=== PATIENT | male | born 1950 | race Native Hawaiian/Other Pacific Islander ===

== ENCOUNTER 2018-03-06 10:52 | Inpatient (IN) | payer MEDICAID, OTHER ==
[2018-03-06] MEDS ORDERED: VANCOMYCIN HCL/NORMAL SALINE 250 ML IV ONE (12:51)
--- NOTE | 2018-03-06 12:53 | EDPHY ---
H & P Stated Complaint: R great toe DM ulcer worse overnight Time Seen by Provider: 03/06/18 12:04 HPI/ROS: Chief Complaint: Worsening ulcer on redness right foot HPI: 67-year-old type 2 diabetic presenting for with a worsening ulcer on his right great toe. Patient states that he was seen by his director home health on Wednesday instructed to follow up with the wound clinic. He has an appointment there in 1 week's time. Family of notice worsening ulceration of his right big toe and now has redness that is spreading up to his mid foot. No fevers or chills. He had noticed some scant discharge. Patient states that he is having increased pain particularly with walking. ROS: 10 point Review of Systems is negative except as noted in the HPI. PMH: Diabetes, coronary artery disease Social History: No smoking Family History: non-contributory Physical Exam: Gen: Awake, Alert, No Distress HEENT: Nose: no rhinorrhea Eyes: PERRLA, EOMI Mouth: Moist mucosa Neck: Supple, no JVD Chest: nontender, lungs clear to auscultation Heart: S1, S2 normal, no murmur Abd: Soft, non-tender, no guarding Back: no CVA tenderness, no midline tenderness Ext: Right foot: Patient has 2 areas of ulceration on his right great toe in the lateral aspect of the distal phalanx. There is erythema spreading proximal to the MCP joint. Sensation is intact. It is warm to touch. Skin: no rash Neuro: CN II-XII intact, Sensation grossly intact, Strength 5/5 in bilateral upper and lower extremities - Personal History Current Tetanus/Diphtheria Vaccine: Yes - Medical/Surgical History Hx Asthma: No Hx Chronic Respiratory Disease: No Hx Diabetes: Yes Hx Cardiac Disease: Yes Hx Renal Disease: No Hx Cirrhosis: No Hx Alcoholism: No Hx HIV/AIDS: No Hx Splenectomy or Spleen Trauma: No Other PMH: KS X3, STENTS X 5 HTN, NIDDM - Social History Smoking Status: Former smoker Constitutional: Initial Vital Signs Temperature (C) 36.5 C 03/06/18 11:09 Heart Rate 64 03/06/18 11:09 Respiratory Rate 16 03/06/18 11:09 Blood Pressure 175/75 H 03/06/18 11:09 O2 Sat (%) 95 03/06/18 11:09 O2 Delivery Mode Room Air Allergies/Adverse Reactions: No Known Allergies Allergy (Verified 03/06/18 11:13) Home Medications: Medication Instructions Recorded Aspirin [Aspirin 325 mg (*)] 325 mg PO HS 03/27/16 Clopidogrel Bisulfate [Plavix (*)] 75 mg PO DAILY 03/27/16 Insulin Glargine [Lantus 100 30 units SC HS 03/27/16 UNITS/ML (*)] Insulin Lispro [humALOG LISPRO 100 10 - 15 unit SC BIDMEAL 03/27/16 units/ml (*)] Lisinopril [Zestril 20 mg (*)] 20 mg PO DAILY 03/27/16 Metoprolol Tartrate [Lopressor 50 50 mg PO BID 03/27/16 mg (*)] Simvastatin 40 mg PO HS 03/27/16 Metformin HCl 03/06/18 Medical Decision Making ED Course/Re-evaluation: 67-year-old male with cellulitis secondary to a diabetic foot ulcer. I have ordered blood tests and cultures. Vancomycin given his diabetes. He will need admission. I have ordered an x-ray which is pending. I have discussed with Dr. Zaragoza, hospitalist. Will admit to Dr. Powers for further care. Departure - Departure Disposition: [facility] In[facility] Acute Clinical Impression: Cellulitis Condition: Good Referrals: NONE *PRIMARY CARE P,. [Primary Care Provider] - As per Instructions
[2018-03-06 13:04] LABS: PLATELET COUNT 350 10^3/uL (150-400)
[2018-03-06] MEDS ORDERED: ONDANSETRON DISINTEGRATING 4 MG TAB PO PRN (15:12)
[2018-03-06] MEDS ORDERED: ONDANSETRON 4 MG/2 ML VIAL IVP PRN (15:12)
[2018-03-06] MEDS ORDERED: ACETAMINOPHEN 325 MG TAB PO PRN (15:12)
--- NOTE | 2018-03-06 15:34 | ASMTCMCOM ---
CM Note CM Note Notes: Pt presented to the Emergency Department with a worsening ulcer/wound on his right toe/foot. History includes diabetes, coronary artery disease. Pt admitted for cellulitis. Pt is and lives with his spouse. Discharge needs remain unclear at this time. CM will continue to follow. Current Discharge Plan: To be determined Date Signed: 03/06/2018 03:33 PM Electronically Signed By:Nallely Wells RN
[2018-03-06] MEDS ORDERED: IOPAMIDOL (ISOVUE 370) 100 ML BTL IV ONE ×2 (16:00→16:51)
--- NOTE | 2018-03-06 16:02 | GHP ---
[f rep st] HISTORY AND PHYSICAL DATE OF ADMISSION: 03/06/2018 HISTORY OF PRESENT ILLNESS: The patient is a pleasant 67-year-old gentleman with a history of longstanding diabetes and coronary artery disease, presents with a toe ulcer. It has been there for about a month, initially noted on [place], and he came back, and it was looking a little bit worse with some surrounding erythema. He saw the manager employee benefits, Mickey Sutherland MD, recently referred him to the wound clinic. He has an appointment there next week, but this morning developed some purpura around and increased redness, so therefore he was referred to the emergency department for further evaluation. There he had a film showing no evidence of osteomyelitis and hyperglycemia. The patient notes he may have some symptoms consistent with claudication of his left lower extremity. He does have decreased pulses in that area. He does not have any known peripheral vascular disease. He has had diabetes for a long period of time. He has had no recent anginal or heart failure type symptoms. REVIEW OF SYSTEMS: Complete 10-point review of systems conducted, negative except as noted in the HPI. PAST MEDICAL HISTORY: Coronary artery disease with remote stents. He had an angiogram in February 2016 showing LVEF of 45% on and non flow-limiting coronary artery disease, but presence of significant coronary artery disease. ALLERGIES: No known drug allergies. HOME MEDICATIONS: Aspirin, atorvastatin, Plavix, Detemir insulin 30 h.s., lispro 10-15 b.i.d., lisinopril/hydrochlorothiazide, metformin, metoprolol. SOCIAL HISTORY: Quit tobacco many, many years ago. Rare alcohol. Works in cleaning. FAMILY HISTORY: Daughter is at the bedside and healthy. PHYSICAL EXAMINATION: VITAL SIGNS: Temp 36.6, blood pressure 168/88, pulse 53 , breathing 16 times a minute, 97% on room air. GENERAL: In no acute distress. HEENT: Sclerae anicteric. Oropharynx clear. Mucous membranes moist. NECK: Supple without lymphadenopathy or JVD. LUNGS: Clear to auscultation bilaterally. HEART: S1, S2. ABDOMEN: Soft, nontender, nondistended. LOWER EXTREMITIES: Without edema. His left lower extremity has a healed ulcer with minimal surrounding cellulitis without lymphangitic streaking. There is an area of purpura on the distal end of the toe. There is no fluctuance. He has an absent dorsalis pedis pulse on that side as he does on the right. The toes are cool. There is hair loss in his lower extremities. NEURO: Nonfocal. LABORATORY/IMAGING DATA: White count 8.3, hematocrit 38. Platelets are 350. Sodium 138, potassium 4.9, chloride 98, bicarb 29, BUN 16, creatinine 0.6, glucose 304. Foot film reviewed, interpreted by me shows no evidence of osteomyelitis. I discussed the case with Dr. Rebel Ho. ASSESSMENT/PLAN: 67-year-old gentleman presents with diabetic foot ulcer. 1. Foot ulcer. This is consistent with a peripheral vascular disease and a foot ulcer. I think there is probably a degree of surrounding cellulitis and will continue vancomycin as initiated by the emergency department. I have ordered a wound care consultation. 2. Peripheral vascular disease. I have ordered ABIs and a CT of the left lower extremity with runoff. Certainly the patient appears to have some significant peripheral vascular disease. 3. Coronary artery disease. Continue on aspirin, beta maylin, statin. 4. Hypertension. Continue his lisinopril/hydrochlorothiazide. 5. Diabetes. Continue his long-acting insulin and as well as his short-acting insulin. Will follow up with the need for sliding scale tomorrow for an A1c. 6. Prophylaxis. Moderate risk, low-molecular heparin. /[id number]/MODL MTDD
--- NOTE | 2018-03-06 18:05 | PDMN ---
Medical Necessity Medical necessity: MCG MGVAS Vascular Disease and M70 Cellulitis, A-2 days. 67 y/o with worsening s/sx to L toe ulcer, redness and purpura, decreased pulse noted, dx with PVD and cellulitis this visit. Hx Diabetes and CAD w/ stent placement. IV antibiotics required, wound consult pending. Pt hypertensive. Glucose 304. Blood cultures pending. Anticipate >2MN for ongoing monitoring and intervention.
[2018-03-06] MEDS: metFORMIN HCL 500 MG TAB PO SCH (18:37)
[2018-03-06] MEDS: INSULIN LISPRO 100 UNIT/ML SC SCH (19:33)
[2018-03-06] MEDS ORDERED: INSULIN DETEMIR 30 UNIT SQ SCH (21:00)
[2018-03-06] MEDS ORDERED: INSULIN GLARGINE 100 UNITS/ML UNIT SC SCH (21:00)
[2018-03-06] MEDS: ASPIRIN 325 MG TAB PO SCH (22:00)
[2018-03-06] MEDS: ATORVASTATIN CALCIUM 20 MG TAB PO SCH (22:00)
[2018-03-06] MEDS: METOPROLOL TARTRATE 50 MG TAB PO SCH (22:01)
[2018-03-07] MEDS: INSULIN LISPRO 100 UNIT/ML SC SCH ×3 (08:41→18:38)
[2018-03-07] MEDS: metFORMIN HCL 500 MG TAB PO SCH ×2 (08:42→17:42)
[2018-03-07] MEDS: CLOPIDOGREL BISULFATE 75 MG TAB PO SCH (10:17)
[2018-03-07] MEDS: LISINOPRIL/HCTZ 20/12.5MG 1 EA TAB PO SCH (10:17)
[2018-03-07] MEDS: METOPROLOL TARTRATE 50 MG TAB PO SCH ×2 (10:17→21:06)
[2018-03-07] MEDS: ENOXAPARIN 40 MG/0.4 ML SYR SC SCH (10:18)
[2018-03-07] MEDS ORDERED: INSULIN GLARGINE 100 UNITS/ML UNIT SC SCH (12:00)
[2018-03-07] MEDS ORDERED: D50W 25 GM/50 ML SYR IVP PRN (12:01)
[2018-03-07] MEDS: VANCOMYCIN HCL/NORMAL SALINE 250 ML IV SCH ×2 (12:56)
--- NOTE | 2018-03-07 13:04 | HOSPPROG ---
Hospitalist Progress Note Assessment/Plan: 67 yo M w poorly cpntrolled dm, cad aan pvd here w diabetic foot ulcer foot ulcer: w cellulitis on vanc w improvement no e/o osteo on film additional day IV abx wound care to see as inpatient PVD: CTA w runoff w 50% stenoses, but no clear need for intervention surgery to review CT as well given poorly controlled dm, he likely has small vessel disease, but also has diminished DP pulses on aspirin DM: a1c 11.8, indicating poor control increase levemir to 36 from 30 only takes lispro 2x a day abut also states eats just 2 meals per day will increase doses- placed on high dose lispro here proph: lmwh dispo: likely home 03/08 after 48 hours IV abx and wound care evbal Subjective: case d/w dr andino. ct images reviewed/interpreted by me Objective: Vital Signs Temp Pulse Resp BP Pulse Ox 36.6 C 55 L 15 150/78 H 96 03/07/18 11:53 03/07/18 11:53 03/07/18 11:53 03/07/18 11:53 03/07/18 11:53 03/06/18 03/07/18 03/08/18 05:59 05:59 05:59 Intake Total 950 Balance 950 - Physical Exam Constitutional: no apparent distress, appears nourished Eyes: PERRL, anicteric sclera Ears, Nose, Mouth, Throat: moist mucous membranes, hearing normal Cardiovascular: regular rate and rhythym, no murmur, rub, or gallop Respiratory: no respiratory distress, no rales or rhonchi Gastrointestinal: normoactive bowel sounds, soft, non-tender abdomen, no palpable masses Genitourinary: no bladder fullness, No donato in urethra Skin: warm, normal color, other (L great toe w improved erythema) Musculoskeletal: full muscle strength, no joint effusions Neurologic: AAOx3 ICD10 Worksheet Patient Problems: Problems Problem Status Onset Cellulitis Acute Chest pain Acute
--- NOTE | 2018-03-07 14:51 | WOCRNPDOC ---
WOCRN Advanced Assessment Note - Skin Integrity Problem, Advanced Assess Right First Toe Diabetic Ulcer Dressing Type: Open to Air Exudate Amount: Minimal Exudate Color: Yellow Exudate Characteristic(s): Dried, Serosanguinous Integumentary Issue Intervention: Mechanical Debridement Indu Wound Tissue: Blanching, Erythema, Swollen, Scaly, Dry Indu Wound Swelling: Mild Wound Bed Color: Brown, Northwest, Red, Yellow Wound Bed Constitution: Red/Northwest - Non Granular Tissue (40%), Mixed Loose & Adhered Slough/Eschar (60%) Wound Edges: Punched Out Site Odor: Moderate, Foul Site Measurement - Head-to-Toe Length X Width X Depth (cm): 1.2x0.7x0.3 Skin Integrity Problem Comment: Wound cleaned with normal saline, gauze used for mechanical debridement and to pat dry. Unable to visualize wound bed due to slough/dried exudate. Patient injured toe and it was infected in [place] according to the patient's daughter. The patient has an appointment in the outpatient wound clinic next week. Recommend podiatry consult and debridement, and to keep wound clinic appointment. Patient prefers to wear open toe shoes. Education provided to patient to try to wear closed toe shoes to prevent further injury to his feet and toes. Patient's daughter in room for care, as well as PUJA Raphael. Wound care will round again later this week.
[2018-03-07] MEDS: ASPIRIN 325 MG TAB PO SCH (21:06)
[2018-03-07] MEDS: ATORVASTATIN CALCIUM 20 MG TAB PO SCH (21:06)
[2018-03-08] MEDS: VANCOMYCIN 1.25 GM in NS 250 ML IV SCH ×2 (00:08→10:35)
[2018-03-08] MEDS: INSULIN LISPRO 100 UNIT/ML SC SCH ×2 (08:09→12:54)
[2018-03-08] MEDS: metFORMIN HCL 500 MG TAB PO SCH (08:10)
[2018-03-08] MEDS: ENOXAPARIN 40 MG/0.4 ML SYR SC SCH (10:36)
[2018-03-08] MEDS: METOPROLOL TARTRATE 50 MG TAB PO SCH (10:37)
[2018-03-08] MEDS: CLOPIDOGREL BISULFATE 75 MG TAB PO SCH (10:39)
[2018-03-08] MEDS: LISINOPRIL/HCTZ 20/12.5MG 1 EA TAB PO SCH (10:40)
--- NOTE | 2018-03-08 10:55 | GDS ---
[f rep st] DISCHARGE SUMMARY DISCHARGE DIAGNOSES: 1. Right great toe diabetic foot ulcer with cellulitis. 2. Peripheral vascular disease. 3. Diabetes mellitus. 4. History of coronary artery disease. STUDIES/PROCEDURE: CT angio with runoff. PHYSICAL EXAM: GENERAL: The patient is alert. VITAL SIGNS: Afebrile at 36.7, pulse is 57, respirat ory rate 16, blood pressure is 122/61. He is saturating 96% on room air. I have seen and evaluated the patient on the day of discharge. HOSPITAL COURSE: The patient is a 67-year-old male who presented to the emergency room with complain ts of foot pain. He was evaluated and diagnosed with: 1. Right diabetic foot ulcer with cellulitis. He was treated with IV vancomycin during this hospita lization. His condition is significantly improved. He has no signs of osteomyelitis on x-ray. Gaby Wills has seen the patient and educated him with regard to dressing changes. He will follow up in [facility] outpatient setting with wound care. He will continue on oral doxycycline, which I have provided h im a prescription for at the time of disposition. 2. Peripheral vascular disease. CT angio with runoff was performed during this hospitalization. Th e patient does have 50% stenosis, but no need for intervention at this time. The patient has been ed ucated at length with regard to the importance of managing his diabetes better. He will continue on his Plavix at the time of disposition. 3. Diabetes mellitus. The patient's A1c is 11.8. I have educated him at length with regard to bett er control. He will continue his insulin in the outpatient setting and initiate care with a glucomet er. He follows with Dr. Bucky Sutherland and we will see him in the next 2 weeks. DISPOSITION: The patient will be discharged home independently. I spent greater than 35 minutes in care coordination and [id number] time educating the patient with regard to medical management and [facility] care. I have used a fuel cell engineer. DISCHARGE MEDICATIONS: Please refer to EMR form. I have provided the patient a prescription for dox ycycline 100 mg twice daily. FOLLOWUP: He will follow up in the wound clinic on Wednesday as previously scheduled as well as followu p with his primary care physician, Dr. Francisca Vallecillo and his urologist, Dr. Bucky Sutherland. /[id number]/MODL
[2018-03-08 11:59] VITALS: BP 136/63
--- NOTE | 2018-03-08 16:50 | ASMTCMCOM ---
CM Note CM Note Notes: Pt medically stable for d/c, no CM d/c needs identified. Date Signed: 03/08/2018 04:49 PM Electronically Signed By:MARY Lovelace
== END 2018-03-08 14:14 | disposition home or self-care (01) | DRG 639 ==
LOC: F3N 12:57
PROVIDERS: ADMIT Emergency Medicine; ATTEND Emergency Medicine
DX: E11.621 Type 2 diabetes mellitus with foot ulcer (principal); L97.519 Non-pressure chronic ulcer of other part of right foot with unspecified severity; L03.031 Cellulitis of right toe; E11.51 Type 2 diabetes mellitus with diabetic peripheral angiopathy without gangrene; I25.10 Atherosclerotic heart disease of native coronary artery without angina pectoris; Z95.5 Presence of coronary angioplasty implant and graft; I10 Essential (primary) hypertension; I25.2 Old myocardial infarction; Z87.891 Personal history of nicotine dependence
CPT/HCPCS: J1650; J1815; J3370; Q9967